=== PATIENT | female | born 1965 | race Caucasian/White ===

== ENCOUNTER → 2016-11-17 | Outpatient (CLI) | payer OTHER | END | disposition home or self-care (01) | LOC: C.PAPS 13:14 | PROVIDERS: ATTEND Obstetrics & Gynecology | DX: Z12.4 Encounter for screening for malignant neoplasm of cervix (principal) ==

== ENCOUNTER → 2017-09-08 | Outpatient (CLI) | payer OTHER ==
--- NOTE | 2017-09-08 16:00 | MAMMOGRAPHY REPORT ---
BILATERAL DIGITAL SCREENING MAMMOGRAM TOMOSYNTHESIS WITH CAD: 09/08/2017 CLINICAL HISTORY: Routine screening. TECHNIQUE: Breast tomosynthesis in addition to standard 2D mammography was performed. Current study was also evaluated with a Computer Aided Detection (CAD) system. COMPARISON: Comparison is made to exams dated: 09/01/2016 mammogram, 08/27/2015 mammogram, 08/22/2014 mammogram - [facility], 01/09/2014 mammogram, 06/16/2013 mammogram, and 06/12/2012 [facility] mogram. BREAST COMPOSITION: There are scattered areas of fibroglandular density in both breasts. FINDINGS: There are scattered benign-appearing round microcalcifications. Stable intramammary lymph node in the superior aspect of each breast on the MLO views. No suspicious mass, architectural disto rtion or cluster of microcalcifications is seen. IMPRESSION: ACR BI-RADS CATEGORY 1: NEGATIVE There is no mammographic evidence of malignancy. A 1 year screening mammogram is recommended. The pa tient will receive written notification of the results. Approximately 10% of breast cancers are not detected with mammography. A negative mammographic report should not delay biopsy if a clinically suggestive mass is present. Jing Caba M.D. ay/:09/08/2017 15:09:48 Machinery Erector: Chata WELLER(Georgina)(M), [facility] letter sent: Normal 1/2 BI-RADS Code: ACR BI-RADS Category 1: Negative
== END | disposition home or self-care (01) ==
LOC: C.MAMM 14:30
PROVIDERS: ATTEND Obstetrics & Gynecology
DX: Z12.31 Encounter for screening mammogram for malignant neoplasm of breast (principal)

== ENCOUNTER → 2017-09-10 | Outpatient (CLI) | payer OTHER ==
--- NOTE | 2017-09-10 08:01 | DIAGNOSTIC IMAGING REPORT ---
R LOWER EXT JOINT WITHOUT CLINICAL HISTORY: 51 years-old Female with KNEE. Chronic right knee pain with concern for meniscal tear COMPARISON: Right knee radiographs 09/06/2017 TECHNIQUE: Multiplanar, multisequence MRI of the right knee was performed without intravenous contrast. FINDINGS: MENISCI: Horizontal undersurface tear is present within the posterior horn, posterior junction and body medial meniscus as seen on image 17 series 7 and series 9. No displaced fragment or parameniscal cyst identified. No extension into the meniscal root. Horizontal undersurface tear is present within the posterior horn, posterior junction and body lateral meniscus as noted on images 15 through 18 of series 9 and image 7 of series 7. No definite displaced fragment identified or parameniscal cyst. Mild parameniscal edema. CRUCIATE LIGAMENTS: The anterior and posterior cruciate ligaments are normal in signal, morphology and course. COLLATERAL LIGAMENTS: The popliteus tendon, biceps femoris tendon, fibular collateral ligament and iliotibial band are intact. The superficial and deep components of the medial collateral ligament are intact. EXTENSOR MECHANISM: The quadriceps and patellar tendons are intact.The medial and lateral patellar retinacula are intact. KNEE JOINT: There is a trace joint effusion. There is low-grade chondromalacia noted involving the posterior weightbearing portion of the lateral femoral condyle. No significant joint space narrowing identified. Low-grade chondromalacia involves the lateral portion of the posterior weightbearing surface medial femoral condyle. Low-grade chondromalacia is noted within the patellar apex, medial and lateral patellar facets. BONE MARROW: The bone marrow signal is age appropriate. No fracture, marrow edema, or marrow replacing process. SOFT TISSUES: The periarticular soft tissues are normal. IMPRESSION: 1. Horizontal undersurface tears are present bilaterally involving the posterior horns, posterior junctions and meniscal bodies as above. No evidence of associated displaced meniscal fragment or parameniscal cyst. 2. Mild low-grade tricompartmental chondromalacia. No high-grade chondral loss or significant degenerative changes. 3. Trace joint effusion. 4. No ligamentous tear. The above report was generated using voice recognition software. It may contain grammatical, syntax or spelling errors. Electronically signed by: Panfilo Villatoro M.D. 09/10/2017 8:00 AM Dictated Date/Time: 09/10/2017 7:46 AM
== END | disposition home or self-care (01) ==
LOC: C.MRIBC 06:58
PROVIDERS: ATTEND Orthopaedic Surgery
DX: M25.561 Pain in right knee (principal); S83.203A Other tear of unspecified meniscus, current injury, right knee, initial encounter; X58.XXXA Exposure to other specified factors, initial encounter

== ENCOUNTER → 2017-11-26 | Outpatient (CLI) | payer OTHER | END | disposition home or self-care (01) | LOC: C.PAPS 11:18 | PROVIDERS: ATTEND Obstetrics & Gynecology | DX: Z12.4 Encounter for screening for malignant neoplasm of cervix (principal) ==

== ENCOUNTER → 2017-12-13 | Outpatient (CLI) | payer OTHER ==
--- NOTE | 2017-12-13 16:22 | DIAGNOSTIC IMAGING REPORT ---
MRI LUMBAR SPINE W/O CONTRAST CLINICAL HISTORY: LUMBAR STENOSIS BACK PAIN AND BURNING SENSATION. NO RELIEF WITH PHYSICAL THERAPY. TECHNIQUE: Sagittal and axial T1, T2 and STIR images were obtained. COMPARISON STUDY: Outside conventional radiographic study performed November 24, 2017 OBSERVATIONS: The vertebral bodies and posterior elements appear intact. There is no abnormal bony signal present to suggest a marrow replacement process. L1-2: No disc protrusions or extrusions. No evidence of spinal canal or neural foraminal compromise. L2-3: There is a small right posterior central disc protrusion with secondary deformity of the thecal sac. There is mild spinal canal narrowing. There is no significant foraminal narrowing L3-4: There is a mild circumferential disc bulge. There is no significant spinal or foraminal stenosis. L4-5: There is a moderate left paracentral disc protrusion with significant deformity of the thecal sac, and spinal canal narrowing.. There is no significant foraminal narrowing. L5-S1: There is a circumferential disc bulge. There is minor left-sided subforaminal narrowing. There is facet joint arthropathy. The conus medullaris and cauda equina appear normal. IMPRESSION: 1. Moderate multilevel spondylitic changes 2. Small right posterior central disc protrusion at the L2-3 level 3. Moderate left paracentral disc protrusion at the L4-5 level. Electronically signed by: Harmeet Lizama M.D. 12/13/2017 4:21 PM Dictated Date/Time: 12/13/2017 4:16 PM
== END | disposition home or self-care (01) ==
LOC: C.MRIBC 15:34
PROVIDERS: ATTEND Orthopaedic Surgery Sports Medicine
DX: M48.00 Spinal stenosis, site unspecified (principal); M51.26 Other intervertebral disc displacement, lumbar region; M47.896 Other spondylosis, lumbar region

== ENCOUNTER → 2018-01-13 | Outpatient (CLI) | payer OTHER ==
[~2018-01-13] MED LIST: CYM/30 PO; TRAM-10 PO
== END | disposition home or self-care (01) ==
LOC: C.CPL 09:18
PROVIDERS: ATTEND Orthopaedic Surgery
DX: S83.281A Other tear of lateral meniscus, current injury, right knee, initial encounter (principal); S83.241A Other tear of medial meniscus, current injury, right knee, initial encounter; X58.XXXA Exposure to other specified factors, initial encounter

== ENCOUNTER → 2018-01-18 | Day surgery (SDC) | payer OTHER ==
[2018-01-13 13:03] VITALS: Ht 172.7 cm; Wt 77.3 kg
[~2018-01-18] VITALS: Ht 172.7 cm; Wt 77.3 kg
[~2018-01-18] MED LIST changes: +ATROPINE SULFATE 0.1 MG/ML 5ML SYR IV PRN; +BUPIVACAINE 0.5 % 5 MG/1 ML PF 10ML VIAL ONE; +CEFAZOLIN 1000MG IV PUSH 7.5 ML IV SCH; +DEXAMETHASONE SOD INJ 4 MG/ML VIAL ONE; +EpHEDrine SULFATE INJ 50 MG/ML AMP IV PRN; +EpINEphrine INJ 1MG/ML AMP 1 MG/ML AMP ONE; +FENTANYL CITRATE INJ 50 MCG/1 ML 2 ML VIAL IV PRN; +FENTANYL CITRATE INJ 50 MCG/1 ML 2 ML VIAL ONE; +KETOROLAC TROMETHAMINE 30 MG/ML VIAL IV STA; +KETOROLAC TROMETHAMINE 30 MG/ML VIAL ONE; +LACTATED RINGER'S 1000ML 1,000 ML IV SCH; +LIDOCAINE HCL 2% 2 ML VIAL (20MG/ML) ONE; +MIDAZOLAM HCL 1 MG/ML 2ML VIAL ONE; +ONDANSETRON INJ 2 MG/ML 2 ML VIAL IV PRN; +ONDANSETRON INJ 2 MG/ML 2 ML VIAL ONE; +OXYCODONE/ACETAMINOPHEN 5-325 TAB PO PRN; +PROPOFOL IV EMULSION 10 MG/ML 20 ML VIAL IV ONE; +ROPIVACAINE 0.5% 5 MG/ML 30 ML VIAL ONE; +SODIUM CHLORIDE 0.9% 1000ML 1,000 ML IV SCH
--- NOTE | 2018-01-18 06:38 | History & Physical Bridge - SC ---
H&P Re-Evaluation Bridge Note: I have examined the patient, reviewed the History & Physical and in the interval since the performance of the History & Physical I have noted the following changes of clinical significance: No changes noted
--- NOTE | 2018-01-18 08:07 | [facility] Post Operative Brief Note ---
Immediate Operative Summary Operative Date Jan 18, 2018. Pre-Operative Diagnosis Right knee medial and lateral meniscus tears Post-Operative Diagnosis Same as preop, DJD MFDada,LTP GRADE 2-3 Procedure(s) Performed Right Knee Arthroscopy, Partial Lateral Meniscectomy,CHONDRONPLASTY Dada,LTP Surgeon Dr. Barajas Telephone Triage Nurse Surgeon(s) Med Allen PA-C Estimated Blood Loss 0 mL Findings Consistent with Post-Op Diagnosis Specimens None Drains None Anesthesia Type General Disposition Disposition: Recovery Room / PACU
--- NOTE | 2018-01-18 08:16 | Discharge Instructions-SurgCtr ---
Discharge Instructions Date of Service Jan 18, 2018. Visit Reason for Visit: Right Knee Medial And Lateral Meniscus Tears Discharge Discharge Diagnosis / Problem: SAME ABOVE Discharge Goals Goal(s): Decrease discomfort, Improve function Activity Recommendations Activity Limitations: as noted below Lifting Limitations: gradually increase as tolerated Exercise/Sports Limitations: until after follow-up appointment Shower/Bathe: tomorrow Weightbearing Status: Right weightbearing (as tolerated) Anesthesia . Post Anesthesia Instructions: If you have had General Anesthesia or IV Sedation: * Do not drive today. * Resume driving when surgeon permits. * Do not make important decisions or sign legal documents today. * Call surgeon for: 1. Temperature elevations greater than 101 degrees F. 2. Uncontrollable pain. 3. Excessive bleeding. 4. Persistent nausea and vomiting. 5. Medication intolerance (nausea, vomiting or rash). * For nausea and vomiting use only clear liquids such as: tea, soda, bouillon until nausea subsides, then gradually increase diet as tolerated. * If you have any concerns or questions, call your surgeon's office. If physician is unavailable and it is an emergency, call 911 or go to the nearest emergency room. . Instructions / Follow-Up Instructions / Follow-Up MEDICATIONS: * Resume previous medications unless instructed otherwise by your surgeon. * Always take pain medication on a full stomach or with food to avoid upset stomach. * Do not drink alcohol or drive while taking narcotics. * Ibuprofen or Tylenol may be taken if narcotic not needed. SPECIAL CARE INSTRUCTIONS: __ None _X_ Keep extremity elevated and iced x 48 hours; apply ice 20-30 minutes 8-10 times/day. May remove at night. __ Crutches __ May discard when able __ Brace/Post-op shoe __ 24 hrs/day __ Remove at night _X_ Dressing __ Maintain until seen in office, may shower with plastic over site _X_ Remove dressings in 24-48 hours and then may shower _X_ Cover incisions with band-aids after showering __ Do not remove steri-strips Call physician if chills or temperature rises above 102 degrees or pain unrelieved by prescribed pain medications. Office [phone] Diet Recommendations Home Diet: resume previous diet Procedures Procedures Performed: Right Knee Arthroscopy, Partial Lateral Meniscectomy,CHONDRONPLASTY MFC,LTP Pending Studies Studies pending at discharge: no Medical Emergencies . Who to Call and When: Medical Emergencies: If at any time you feel your situation is an emergency, please call 911 immediately. . Non-Emergent Contact Non-Emergency issues call your: Primary Care Provider . . "Provider Documentation" section prepared by Med Allen. .
[2018-01-18 09:35] VITALS: TEMP 37
[2018-01-18 09:58] VITALS: BP 137/83; PULSE 68; O2SAT 99
--- NOTE | 2018-01-18 10:10 | Anesthesia Progress Nt - [facility] ---
Anesthesia Post Op Note Date & Time Jan 18, 2018 at 10:10 Vital Signs Pain Intensity: 2 Vital Signs Past 12 Hours Date Time Temp Pulse Resp B/P (MAP) Pulse Ox O2 Delivery O2 Flow Rate FiO2 01/18/18 09:58 68 16 137/83 (101) 99 Room Air 01/18/18 09:35 37.0 68 16 120/78 (92) 98 Room Air 01/18/18 09:26 128/89 01/18/18 09:25 62 14 98 01/18/18 09:25 61 14 01/18/18 09:23 37.1 60 12 128/89 98 Room Air 01/18/18 09:21 131/85 01/18/18 09:20 60 13 97 01/18/18 09:20 60 13 01/18/18 09:16 128/85 01/18/18 09:15 65 13 01/18/18 09:15 62 13 96 01/18/18 09:11 124/82 01/18/18 09:10 62 12 94 01/18/18 09:10 61 12 01/18/18 09:06 129/85 01/18/18 09:05 61 13 01/18/18 09:05 62 13 100 01/18/18 09:01 127/85 01/18/18 09:00 62 11 100 01/18/18 09:00 62 11 01/18/18 08:56 129/86 01/18/18 08:55 64 13 100 01/18/18 08:55 65 13 01/18/18 08:51 138/92 01/18/18 08:50 63 10 01/18/18 08:50 63 10 100 01/18/18 08:46 140/92 01/18/18 08:45 70 15 100 01/18/18 08:45 73 15 01/18/18 08:41 135/82 01/18/18 08:40 61 10 100 01/18/18 08:40 62 10 01/18/18 08:36 136/96 01/18/18 08:35 65 13 100 01/18/18 08:35 66 13 01/18/18 08:31 143/85 01/18/18 08:30 64 14 100 01/18/18 08:30 63 14 01/18/18 08:26 140/85 01/18/18 08:25 70 14 01/18/18 08:25 70 14 100 01/18/18 08:21 141/76 01/18/18 08:20 73 16 100 01/18/18 08:20 73 16 01/18/18 08:15 56 150/93 01/18/18 08:15 56 01/18/18 08:15 36.5 70 12 150/73 100 Mask 6 01/18/18 06:43 36.5 64 16 124/88 (100) 96 Room Air Notes Mental Status: alert / awake / arousable, participated in evaluation Pt Amnestic to Procedure: Yes Nausea / Vomiting: adequately controlled Pain: adequately controlled Airway Patency, RR, SpO2: stable & adequate BP & HR: stable & adequate Hydration State: stable & adequate Anesthetic Complications: no major complications apparent
--- NOTE | 2018-01-18 11:18 | OPERATIVE REPORT ---
DATE OF OPERATION: 01/18/2018 PREOPERATIVE DIAGNOSIS: Medial and lateral meniscus tears, right knee. POSTOPERATIVE DIAGNOSES: 1. Small medial meniscus tear. 2. Large lateral meniscus tear. 3. Grade 2-3 articular changes in medial femoral condyle and lateral tibial plateau. PROCEDURES: 1. Right knee arthroscopy. 2. Partial lateral meniscectomy. 3. Partial medial meniscectomy. 4. Chondroplasty medial femoral condyle and lateral tibial plateau, grade 2-3 articular changes. SURGEON: Dustin Barajas M.D. MANAGER COSMETIC: Med Allen PA-C. ANESTHESIOLOGIST: Dr. Arce. ANESTHESIA: General. DRAINS: None. COMPLICATIONS: None. CONDITION: The patient tolerated the procedure well and returned to the recovery room in apparent satisfactory condition. INDICATIONS FOR SURGERY: Rima is a 52-year-old female who has had increasing pain and discomfort right knee. Exam, MRI and history are consistent with a lateral meniscus tear and possible medial meniscus tear. Went over treatment options and elected to go ahead and proceed with surgery. The procedure, expected outcomes and side effects were all explained in detail to her. DESCRIPTION OF PROCEDURE: The patient was taken to the OR at which time she was placed supine on the operating table and put to sleep by anesthesia department. Examination of right knee was done. Ligamentous bess, it was stable. Went ahead and prepped and draped in usual sterile fashion. We began arthroscopic examination in the anteromedial and anterolateral portals with a thigh tourniquet up to 300 mmHg. We found a very small medial meniscus tear, we came in and trimmed it back. There was articular change on the flexion surface of the femoral condyle, probably size of a nickel, a grade 2-3 lesion. We came in and did a chondroplasty here and the ACL was fine. Lateral compartment had a lateral meniscus tear and the posterior horn was fibrillated and articular surface of the tibial plateau had grade 2-3 articular changes there. We came in with upbiting scissors and full range resector and trimmed the meniscus back to a stable rim and then a chondroplasty to the lateral tibial plateau. The lateral femoral condyle was in good shape. Knee then was copiously irrigated. Attention was given patellofemoral joint. She had slight fraying of the superior pole of the patella. Light debridement was done here and remaining in the trochlear groove at the distal femur was in good shape. Knee then was copiously irrigated. Cannulas were removed. Portals closed with 4-0 nylon sutures. 30 mL of ropivacaine, 10 mg of Toradol, and 1 mL of epinephrine was placed in the knee joint. Placed sterile dressing of Xeroform, 4 x 4's, ABD, Sof-Rol, and Misbah bandage and returned back to recovery room in apparent satisfactory condition. SURGICAL FINDINGS: Included: 1. Large lateral meniscus tear. 2. Small medial meniscus tear. 3. Articular changes to the medial femoral condyle size of a nickel grade 2-3. 4. Grade 2-3 articular changes to the lateral tibial plateau. I attest to the content of the Intraoperative Record and any orders documented therein. Any exceptions are noted below. MTDD
== END | disposition home or self-care (01) ==
LOC: X.SURG 06:27
PROVIDERS: ATTEND Orthopaedic Surgery
DX: S83.281A Other tear of lateral meniscus, current injury, right knee, initial encounter (principal); S83.241A Other tear of medial meniscus, current injury, right knee, initial encounter; M24.10 Other articular cartilage disorders, unspecified site; X58.XXXA Exposure to other specified factors, initial encounter